=== PATIENT | male | born 2005 | race African-American/Black ===

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

== ENCOUNTER 2024-10-09 23:29 | Emergency (ER) | payer SELFPAY ==
[2024-10-09 23:29] VITALS: BP 153/87; PULSE 77; RESP 16; TEMP 36.6; O2SAT 100; BMI 23.4
[2024-10-09 23:32] VITALS: BP 146/72; PULSE 77; RESP 16; TEMP 36.7; O2SAT 98
--- NOTE | 2024-10-10 00:04 | EX.ED.GUMALE ---
HPI History of Present Illness Chief Complaint: Male Pain/Injury Informant: patient Narrative Narrative: Patient is a 18-year-old male with no significant past medical history. He states in the last few weeks he had unprotected sexual intercourse. He reports he is now having frequency of urination painful urination and even penile discharge. He states that he is unsure if he has picked up an STD and secondary to this comes in for evaluation [facility] Medical History (Updated 10/10/24 @ 00:[address] Jay Stokes, DO) Marijuana smoker Medical History no medical history Home Medications ?Medication ?Instructions ?Recorded ?Last Taken ?Type doxycycline hyclate 100 mg capsule 100 mg PO BID 7 days #14 caps 10/10/24 Unknown Rx Allergy/AdvReac Type Severity Reaction Status Date / Time No Known Allergies Allergy Verified 10/09/24 23:32 Family History no significant family his Surgical History no surgical history Social History Smoking Status: Current every day smoker tobacco type: e-cigarettes ROS ROS ED Constitutional Constitutional ED: Denies chills or fever(s) ENT ENT ED: Denies sore throat Cardiovascular Cardiovascular: Denies chest pain Respiratory/Chest Respiratory/Chest: Denies cough or dyspnea Gastrointestinal Gastrointestinal: Denies abdominal pain, diarrhea, nausea or vomiting Genitourinary Genitourinary ED: Reports dysuria and urinary frequency; Denies hematuria Musculoskeletal Musculoskeletal: Denies back pain Integumentary Denies rash Neurologic Neurologic: Denies headache(s) Hematologic/Lymphatic Hematologic/Lymphatic: Denies easy bleeding or easy bruising EXAM Physical Exam Const Vital Signs: 10/09/24 23:29 10/09/24 23:32 10/10/24 00:32 Temperature 98 F 98.0 F 98.1 F Temperature Source Oral Oral Oral Pulse Rate 77 77 68 Respiratory Rate 16 16 16 Blood Pressure 153/87 H 146/72 H 106/91 H Blood Pressure Mean 109 96 96 Pulse Ox 100 98 99 Oxygen Delivery Method Room Air Room Air Room Air 10/10/24 00:46 Temperature 98.1 F Temperature Source Pulse Rate 68 Respiratory Rate 16 Blood Pressure 106/91 H Blood Pressure Mean 96 Pulse Ox 99 Oxygen Delivery Method Positive well nourished and well developed General Appearance ED: well developed HEENT HEENT Narrative: Normocephalic atraumatic Eyes PERRL and EOMs intact bilaterally Neck supple Resp normal respiratory effort and clear to auscultation bilaterally Cardio regular rate and regular rhythm Narrative: Normal circumcised male. There is a scant amount of purulent discharge at the urethral meatus but no blood noted. There is no testicular swelling or masses. No abnormal lie to the testicle noted. No soft tissue changes to suggest herpes or Gunjan's gangrene Back/Spine no CVA tenderness Extremity normal to inspection Neuro oriented x3, CN's II-XII intact bilaterally, moves all extremities, no focal motor deficits and no sensory deficits noted Sensorium / Orientation: alert Motor Exam: strength 5/5 throughout Psych mental status grossly normal Skin no rashes or lesions noted MDM MDM MDM Narrative Medical decision making narrative: Patient arrived to the ER with stable vitals and reported recent unprotected sexual intercourse and now with frequency urgency dysuria and some discharge. History and exam is most consistent with STD most likely gonorrhea and/or chlamydia. Secondary to that a urine sample will be obtained and will be sent for testing. However as the patient does have high likelihood for 1 or both these infections will be treated with Rocephin and doxycycline. He does not have overlying soft tissue changes to suggest herpes or Gunjan's gangrene and he does not have any type of abnormal swelling or lying or mass to the testicle to suggest testicular abscess or testicular torsion. Therefore there is no need for ultrasound or further workup and patient is otherwise safe for discharge History & Record Review Discussion w/independent historian: Patient Lab Data Attestation: I reviewed the patient's lab results. Labs: Laboratory Results - last 24 hr 10/10/24 00:10 Urine Color Yellow Urine Clarity Clear Urine pH 6.0 Ur Specific [place] 1.020 Urine Protein 15 H Urine Glucose (UA) Normal Urine Ketones 5 H Urine Occult Blood Negative Urine Nitrite Negative Urine Bilirubin Negative Urine Urobilinogen 1 H Ur Leukocyte Esterase 100 H Urine RBC 0 SEEN Urine WBC 10-25 SEEN Ur Squamous Epith Cells 0 SEEN Urine Bacteria 1+ Urine Mucus 0 SEEN Discharge Plan Triage Chief Complaint: Male Pain/Injury ED Provider: Jay Stokes Dx/Rx/DC Orders Clinical Impression: Possible exposure to STD Instructions: ED STI Male Treated Prescriptions: New doxycycline hyclate 100 mg capsule 100 mg PO BID 7 Days Qty: 14 0RF Primary Care Provider: Care Physician,No Primary Referrals: Adrien Carr MD [Med Staff - Active Staff] - Care Physician,No Primary [Primary Care Provider] - Activity Restrictions/Additional Instructions: Your symptoms are most consistent with gonorrhea and/or chlamydia. Take the prescribed antibiotic as directed to help resolve the infection. Refrain from sexual activity for the next 7 days. Return to the ER should you have any further concerns or worsening of symptoms despite treatment Print Language: Swazi Disposition Disposition: Home, Self Care Discharge Date/Time: 10/10/24 01:03
[2024-10-10 00:21] LABS: Mucous, Urine 0 SEEN /hpf (<or=2+); Red Blood Cells-Urine 0 SEEN /hpf (0-5); Squamous Epithelial Cells - UA 0 SEEN /hpf (0-5)
[2024-10-10 00:24] LABS: Color, Urine Yellow (Yellow); Glucose, Dipstick Normal (Normal); Ketone-Dipstick 5 mg/dl (Negative); Leukocyte Esterase-Dipstick 100 /ul (Negative); Nitrite-Dipstick Negative (Negative); Occult Blood-Urine Negative /ul (Negative); Protein-Dipstick 15 mg/dl (Negative); Urine Bilirubin Dipstick Negative (Negative); Urine Clarity Clear (Clear); Urine Urobilinogen 1 mg/dl (Normal)
[2024-10-10 00:32] VITALS: BP 106/91; PULSE 68; RESP 16; TEMP 36.7; O2SAT 99
[2024-10-10 00:38] LABS: White Blood Cells 10-25 SEEN /hpf (0-5)
[2024-10-10 00:39] LABS: Bacteria 1+ /hpf (None Seen)
[2024-10-10] MEDS: Doxycycline 100 MG CAPSULE PO (00:39)
[2024-10-10] MEDS: Ceftriaxone 1 GM Vial IM (00:39)
[2024-10-10 00:46] VITALS: BP 106/91; PULSE 68; RESP 16; TEMP 36.7; O2SAT 99
== END 2024-10-10 01:03 | disposition home or self-care (01) ==
LOC: ED 10-10 00:36
PROVIDERS: Emergency Provider Emergency Medicine; Visit Provider Emergency Medicine
DX: Z20.2 Contact with and (suspected) exposure to infections with a predominantly sexual mode of transmission (principal); R30.0 Dysuria; R35.0 Frequency of micturition; R36.9 Urethral discharge, unspecified; F17.290 Nicotine dependence, other tobacco product, uncomplicated
CPT/HCPCS: 81001; 87491; 87591; 96372; 99282

== ENCOUNTER 2025-02-01 23:17 | Emergency (ER) | payer SELFPAY ==
[2025-02-01 23:18] VITALS: BP 144/89; PULSE 104; RESP 15; TEMP 36.7; O2SAT 100
[2025-02-01 23:38] LABS: Color, Urine Yellow (Yellow); Glucose, Dipstick Normal (Normal); Ketone-Dipstick Negative (Negative); Leukocyte Esterase-Dipstick 100 /ul (Negative); Nitrite-Dipstick Negative (Negative); Occult Blood-Urine 10 /ul (Negative); Protein-Dipstick 30 mg/dl (Negative); Urine Bilirubin Dipstick Negative (Negative); Urine Clarity Clear (Clear); Urine Urobilinogen Normal (Normal)
[2025-02-02 00:03] LABS: Bacteria 1+ /hpf (None Seen); Mucous, Urine 2+ /hpf (<or=2+); Red Blood Cells-Urine 0-5 SEEN /hpf (0-5); Squamous Epithelial Cells - UA 0-5 SEEN /hpf (0-5); White Blood Cells 50-100 SEEN /hpf (0-5)
--- NOTE | 2025-02-02 00:19 | EDS_ITS ---
HPI History of Present Illness Chief Complaint: Complaint Detail of Chief Complaint: Dysuria Onset/Context/Timing Onset: Yesterday Context: Sudden Onset Timing: Continuous Quality: Burning with urination Location: Current Severity: Gone Maximum Severity: Moderate Worsened by: Urination Relieved by: Nothing Associated Symptoms Associated Symptoms: No other symptoms Narrative Narrative: Patient is a 19-year-old male who had unprotected sexual intercourse with a new partner. He presents with dysuria. Denies penile lesion. He to denies swelling of his scrotum or pain in his testicles. He denies prior history of STI. He denies fever or chills. Denies myalgias arthralgias. He denies joint swelling. Prior similar symptoms: No Recent Illness/Hospitalization: No PFSH PFSH Medical History Marijuana smoker Home Medications ?Medication ?Instructions ?Recorded ?Last Taken ?Type doxycycline hyclate 100 mg capsule 100 mg PO BID 7 day s #14 caps 10/10/24 Unknown Rx Allergy/AdvReac Type Severity Reaction Status Date / Time No Known Allergies Allergy Verified 02/01/25 23:17 Social History housing: house Smoking Status: Current every day smoker tobacco type: e-cigarettes ROS ROS ED Constitutional Constitutional ED: Denies chills, fever(s), subjective, sweats or weight loss Eyes Eyes: Denies blurry vision or change in vision Gastrointestinal Gastrointestinal: Denies abdominal pain, nausea or vomiting Genitourinary Genitourinary ED: Reports dysuria; Denies hematuria or urinary frequency Musculoskeletal Musculoskeletal: Denies arthralgias or myalgias Integumentary Denies rash EXAM Physical Exam Const Vital Signs: 02/01/25 23:18 02/01/25 23:18 Temperature 98.1 F Temperature Source Oral Pulse Rate 104 H 104 H Respiratory Rate 15 15 Blood Pressure 144/89 H 144/89 H Blood Pressure Mean 107 107 Pulse Ox 100 100 Oxygen Delivery Method Room Air Room Air Positive well nourished and well developed Constitutional Narrative: Blood pressure is elevated 144/89. He is tachycardic. General Appearance ED: well developed and NAD; Negative for pallor HEENT Reports moist mucous membranes HEENT Narrative: Head is atraumatic normocephalic. Ears normal. Nares patent. Posterior pharynx is normal. Eyes PERRL and EOMs intact bilaterally General Eye ED: Negative for pale conjunctiva or scleral icterus Resp normal respiratory effort Cardio regular rate and regular rhythm GI normal to inspection, nondistended, normoactive bowel sounds, non-tender, non- distended and no masses; Negative for hepatosplenomegaly Narrative: Patient has a clear thin urethral discharge. Testes ascended bilaterally. There is no testicular tenderness or epididymal tenderness right or left. There is no inguinal adenopathy. There is no penile lesions. Neuro oriented x3 and CN's II-XII intact bilaterally Sensorium / Orientation: alert Psych mental status grossly normal Skin no rashes or lesions noted, no wounds and skin turgor normal General Skin Exam: Negative for jaundice or pallor MDM MDM MDM Narrative Medical decision making narrative: Patient presents with dysuria. In light of patient's history differential diagnosis would be gonococcal urethritis versus chlamydia versus chemical irritation. Symptoms are not consistent with a urinary tract infection. Lab Data Attestation: I reviewed the patient's lab results. Lab results narrative: Urinalysis was ordered by nursing staff. Patient has pyuria with 1+ bacteria. Urine for chlamydia and GC was ordered. Labs: Laboratory Results - last 24 hr 02/01/25 23:26 Urine Color Yellow Urine Clarity Clear Urine pH 5.0 Ur Specific [place] 1.030 Urine Protein 30 H Urine Glucose (UA) Normal Urine Ketones Negative Urine Occult Blood 10 H Urine Nitrite Negative Urine Bilirubin Negative Urine Urobilinogen Normal Ur Leukocyte Esterase 100 H Urine RBC 0-5 SEEN Urine WBC 50-100 SEEN Ur Squamous Epith Cells 0-5 SEEN Urine Bacteria 1+ Urine Mucus 2+ Treatment and Re-Evaluation :: Patient was treated with 500 mg of Rocephin and 1 g of azithromycin. He was discharged to home with appropriate home-going structures. Discharge Plan Triage Chief Complaint: Complaint ED Provider: Dionte Rothman Dx/Rx/DC Orders Clinical Impression: Bacterial urethritis, Elevated blood-pressure reading without diagnosis of hypertension, Sinus tachycardia Instructions: ED STI Male Treated Prescriptions: No Action doxycycline hyclate 100 mg capsule 100 mg PO BID 7 Days Qty: 14 0RF Primary Care Provider: Care Physician,No Primary Referrals: Care Physician,No Primary [Primary Care Provider] - Activity Restrictions/Additional Instructions: 1. Your sexual partner needs to be informed that you were treated for a sexually transmitted infection 2. No sexual intercourse for 7 to 14 days 3. If you are at risk to get this infection you are at risk for HIV 4. If you develop fever, rash or swelling of your joints return to the emergency department 5. Recommend follow-up if no improvement with the [facility] Print Language: Iranian Disposition Disposition: Home, Self Care
[2025-02-02] MEDS: Azithromycin 250 MG Tablet 1000 MG PO (00:22)
[2025-02-02] MEDS: Ceftriaxone 500 MG Vial IM (00:35)
== END 2025-02-02 00:38 | disposition home or self-care (01) ==
PROVIDERS: Emergency Provider Emergency Medicine; Visit Provider Emergency Medicine
DX: N34.2 Other urethritis (principal); R36.9 Urethral discharge, unspecified; R00.0 Tachycardia, unspecified; R30.9 Painful micturition, unspecified; R03.0 Elevated blood-pressure reading, without diagnosis of hypertension; F17.290 Nicotine dependence, other tobacco product, uncomplicated
CPT/HCPCS: 81001; 87491; 87591; 96372; 99283

== ENCOUNTER 2025-03-08 15:44 | Emergency (ER) | payer SELFPAY ==
[2025-03-08 15:45] VITALS: BP 153/71; PULSE 101; RESP 19; TEMP 36.7; O2SAT 98; BMI 28.1
--- NOTE | 2025-03-08 18:08 | EX.ED.GUMALE ---
HPI History of Present Illness Chief Complaint: Complaint Informant: patient Narrative Narrative: 19-year-old male presenting to the emergency room out of concern for STD. Patient states that his sexual partner recently tested positive for chlamydia. He states that he does not know of any symptoms that he has been experiencing. He denies any penile drainage or dysuria. No fevers. Denies any significant testicular swelling or pain. He does note a pimple in his mons pubis region. He would also like to be tested for HIV and syphilis. PFSH PFS Medical History Marijuana smoker Home Medications ?Medication ?Instructions ?Recorded ?Last Taken ?Type NK 03/08/25 Unknown History Allergy/AdvReac Type Severity Reaction Status Date / Time No Known Allergies Allergy Verified 03/08/25 17:27 Social History housing: house Smoking Status: Current every day smoker tobacco type: e-cigarettes ROS ROS ED Constitutional Constitutional ED: Denies chills or weight loss Eyes Eyes: Denies change in vision or diplopia ENT ENT ED: Denies ear pain, rhinorrhea or sore throat Cardiovascular Cardiovascular: Denies chest pain, orthopnea, palpitations or racing heartbeat Respiratory/Chest Respiratory/Chest: Denies cough, dyspnea or orthopnea Gastrointestinal Gastrointestinal: Denies abdominal pain, diarrhea, nausea or vomiting Genitourinary Genitourinary ED: Reports other Details: See history of present illness ; Denies dysuria, hematuria or urinary frequency Musculoskeletal Musculoskeletal: Denies arthralgias or myalgias Integumentary Denies abscess or rash Neurologic Neurologic: Denies headache(s) or weakness Psychiatric Psychiatric: Denies anxiety, depression, suicidal ideation or suicidal thoughts Endocrine Endocrinology: Denies polydipsia, polyphagia or polyuria Allergic/Immunologic Allergic/Immunologic ED: Denies mouth swelling, tongue swelling or urticaria EXAM Physical Exam Const Vital Signs: 03/08/25 15:45 Temperature 98.1 F Temperature Source Temporal Pulse Rate 101 H Respiratory Rate 19 H Blood Pressure 153/71 H Blood Pressure Mean 98 Pulse Ox 98 Oxygen Delivery Method Room Air Positive well nourished and well developed General Appearance ED: well developed HEENT Reports normocephalic, head/scalp atraumatic and moist mucous membranes Eyes PERRL and EOMs intact bilaterally Neck no lymphadenopathy, supple and no JVD Resp normal respiratory effort and clear to auscultation bilaterally Cardio regular rate, regular rhythm and no murmurs GI normal to inspection, nondistended, normoactive bowel sounds and non-tender Palpation: soft Narrative: Circumcised male. I do not appreciate any significant penile lesions. No drainage from the meatus. Testicles appear normal. I do not appreciate any inguinal lymphadenopathy. Back/Spine no CVA tenderness and normal ROM Extremity normal to inspection General Extremety ED: Negative for edema General Extremity: Negative for edema Neuro oriented x3 and CN's II-XII intact bilaterally Sensorium / Orientation: alert Motor Exam: strength 5/5 throughout Psych mental status grossly normal Mood & Affect: Negative for depressed or tearful Skin no rashes or lesions noted and no wounds MDM MDM MDM Narrative Medical decision making narrative: Differential diagnosis includes but not limited to urethritis asymptomatic carrier HIV syphilis gonorrhea chlamydia other STD We are going to obtain an HIV and syphilis screen. I will also send his urine for gonorrhea chlamydia. Patient would like to be prophylactically treated which I think is reasonable. He understands that he needs to be retested for STDs in the upcoming months. He is comfortable with this plan. History & Record Review Discussion w/independent historian: Patient Discharge Plan Triage Chief Complaint: Complaint ED Provider: Janes Medeiros Dx/Rx/DC Orders Prescriptions: No Action NK Primary Care Provider: Care Physician,No Primary Referrals: Care Physician,No Primary [Primary Care Provider] - Print Language: Hungarian
[2025-03-08] MEDS: Azithromycin 250 MG Tablet 1000 MG PO (18:25)
[2025-03-08 18:52] LABS: HIV Nonreactive (Nonreactive); Syphilis Antibodies Nonreactive (Nonreactive)
[2025-03-08] MEDS: Ceftriaxone 500 MG Vial IM (18:53)
== END 2025-03-08 19:20 | disposition home or self-care (01) ==
LOC: ED 18:18
PROVIDERS: Emergency Provider Emergency Medicine; Visit Provider Emergency Medicine
DX: Z20.2 Contact with and (suspected) exposure to infections with a predominantly sexual mode of transmission (principal); F17.290 Nicotine dependence, other tobacco product, uncomplicated
CPT/HCPCS: 86703; 86780; 87491; 87591; 96372; 99282